=== PATIENT | male | born 1945 | race Caucasian/White ===

== ENCOUNTER 2017-06-01 00:17 | Inpatient (IN) | payer BC, OTHER ==
[~2017-06-01] VITALS: Ht 170.2 cm; Wt 79.0 kg
[2017-06-01] MEDS ORDERED: ONDANSETRON 4 MG INJ IV STA (00:56)
[2017-06-01] MEDS ORDERED: SOD CHLORIDE 0.9% 500 ML IV STA (00:56)
--- NOTE | 2017-06-01 01:07 | ERA ---
ER Documentation Chief Complaint Date/Time DATE: 06/01/17 TIME: 01:03 Chief Complaint HPI Patient is a 72-year-old male with history of left-sided weakness due to stroke 4 months ago who presents to the ER with sudden onset, intermittent, frequent vomiting for the last 1-2 hours. He states that there is no blood in the emesis. He denies abdominal pain. He denies fever. He denies diarrhea or constipation. He reports having a mild cough and slight shortness of breath. He reports having a mild headache and tremor to his left hand that is new. He is not on anticoagulation. ROS All systems reviewed and are negative except as per history of present illness. Medications Home Meds Reported Medications Clopidogrel Bisulfate* (Clopidogrel Bisulfate*) 75 Mg Tablet, 75 MG PO DAILY, # 30 TAB 06/01/17 Amlodipine Besylate* (Amlodipine Besylate*) 10 Mg Tablet, 10 MG PO DAILY, #30 TAB 06/01/17 Metformin Hcl* (Metformin Hcl*) 500 Mg Tablet, 500 MG PO WITH BREAKFAST DINNE, # 60 TAB 06/01/17 Atorvastatin* (Atorvastatin*) 40 Mg Tablet, 40 MG PO QHS, #30 TAB 06/01/17 Carvedilol* (Carvedilol*) 12.5 Mg Tablet, 12.5 MG PO BID, #60 TAB 06/01/17 Discontinued Reported Medications Carvedilol* (Carvedilol*) 12.5 Mg Tablet, 12.5 MG PO BID, #60 TAB 06/01/17 Allergies Allergies: Coded Allergies: No Known Allergy (Unverified , 06/01/17) PMhx/Soc Past medical history: CVA with left-sided deficit, diabetes mellitus, hypertension, hypercholesterolemia Past surgical history: Patient denies Social history: Patient denies tobacco or alcohol FmHx Noncontributory Physical Exam Vitals Vital Signs Date Time Temp Pulse Resp B/P Pulse Ox O2 Delivery O2 Flow Rate FiO2 06/01/17 06:03 98.5 96 20 149/119 95 Room Air 06/01/17 04:00 98.7 96 18 147/91 97 Room Air 06/01/17 02:59 99.3 100 19 136/69 100 Room Air 06/01/17 02:00 98.8 86 19 119/81 94 Room Air 06/01/17 01:08 98.4 92 22 171/125 97 06/01/17 00:55 98.2 92 20 151/89 97 Room Air Physical Exam Const: Alert, slightly lethargic, no acute distress, no active on Head: Atraumatic Eyes: Normal Conjunctiva, Pupils equal round reactive, no Conjunctival pallor or icterus ENT: Normal External Ears, Nose and Mouth. Mucous membranes moist Neck: Full range of motion..~ No meningismus. Resp: Clear to auscultation bilaterally, Trace right basilar rales Cardio: Regular rate and rhythm, no murmurs Abd: Soft, non tender, non distended. Skin: No petechiae or rashes Back: No midline or flank tenderness Ext: No cyanosis, or edema Neur: Awake and alert, Dense left hemiparesis, slight facial droop, no tremor noted Psych: Normal Mood and Affect Result Diagram: 06/01/1710906/01/17109 Results 24 hrs Laboratory Tests Test 06/01/17 01:10 06/01/17 01:36 06/01/17 02:47 06/01/17 05:15 White Blood Count 13.310^3/ul Red Blood Count 5.1510^6/ul Hemoglobin 14.4g/dl Hematocrit 42.7% Mean Corpuscular Volume 82.9fl Mean Corpuscular Hemoglobin 28.0pg Mean Corpuscular Hemoglobin Concent 33.7g/dl Red Cell Distribution Width 13.4% Platelet Count 91126^3/UL Mean Platelet Volume 10.3fl Neutrophils % 78.5% Lymphocytes % 15.8% Monocytes % 3.2% Eosinophils % 1.4% Basophils % 0.5% Nucleated Red Blood Cells % 0.0/100WBC Neutrophils # 10.510^3/ul Lymphocytes # 2.110^3/ul Monocytes # 0.410^3/ul Eosinophils # 0.210^3/ul Basophils # 0.110^3/ul Nucleated Red Blood Cells # 0.010^3/ul Prothrombin Time 13.2Sec Prothrombin Time Ratio 1.0 INR International Normalized Ratio 1.00 Activated Partial Thromboplast Time 29.4Sec Sodium Level 139mmol/L Potassium Level 3.5mmol/L Chloride Level 101mmol/L Carbon Dioxide Level 29mmol/L Anion Gap 13 Blood Urea Nitrogen 11mg/dl Creatinine 0.84mg/dl Glucose Level 174mg/dl Calcium Level 10.1mg/dl Total Bilirubin 0.2mg/dl Direct Bilirubin 0.00mg/dl Indirect Bilirubin 0.2mg/dl Aspartate Amino Transf (AST/SGOT) 37IU/L Alanine Aminotransferase (ALT/SGPT) 46IU/L Alkaline Phosphatase 127IU/L Troponin I 0.021ng/ml Total Protein 8.6g/dl Albumin 3.8g/dl Globulin 4.80g/dl Albumin/Globulin Ratio 0.79 Bedside Glucose 166mg/dL Urine Color YELLOW Urine Clarity CLOUDY Urine pH 6.0 Urine Specific [place] 1.012 Urine Ketones NEGATIVEmg/dL Urine Nitrite NEGATIVEmg/dL Urine Bilirubin NEGATIVEmg/dL Urine Urobilinogen NEGATIVEmg/dL Urine Leukocyte Esterase 3+Yue/ul Urine Microscopic RBC 46/HPF Urine Microscopic WBC > 182/HPF Urine Bacteria FEW/HPF Urine Mucus FEW/HPF Urine Hemoglobin 2+mg/dL Urine Glucose NEGATIVEmg/dL Urine Total Protein 1+mg/dl Lactic Acid Level 1.7mmol/L Current Medications Medications (Trade) Dose Ordered Sig/Roberto Route PRN Reason Start Time Stop Time Status Last Admin Dose Admin Sodium Chloride (NS) 500 ml @ 500 mls/hr Q1H STAT IV 06/01/17 00:56 06/01/17 01:55 DC 06/01/17 01:52 Ondansetron HCl 4 mg 4 mg ONCE STAT IV 06/01/17 00:56 06/01/17 00:59 DC 06/01/17 01:51 Ceftriaxone Sodium 50 ml @ 100 mls/hr ONCE STAT IVPB 06/01/17 03:50 06/01/17 04:19 DC 06/01/17 05:31 Sodium Chloride (NS) 500 ml @ 500 mls/hr Q1H ONCE IV 06/01/17 04:00 06/01/17 04:59 DC 06/01/17 04:00 Lorazepam (Ativan) 0.5 mg ONCE ONCE IV 06/01/17 05:00 06/01/17 05:01 DC 06/01/17 05:30 Ondansetron HCl (Zofran Inj) 4 mg ER BRIDGE PRN IV NAUSEA AND/OR VOMITING 06/01/17 06:00 06/02/17 05:59 Acetaminophen (Tylenol Tab) 650 mg ER BRIDGE PRN PO MILD PAIN/FEVER 06/01/17 06:00 06/02/17 05:59 Procedures/MDM EKG read by me: Time 0 47, rate 91 Rhythm: Normal sinus [place]: Normal Intervals: Normal ST-T waves: Nonspecific STT wave changes in lateral leads Ectopy: No Q-waves: Inferior Q waves, anterior Q waves are not clearly pathologic Impression: Left ventricular hypertrophy with nonspecific STT wave changes MDM: Patient is a 72-year-old male with history of left-sided hemiparesis who presents to the ER with vomiting and left arm shaking. He does not have any new neurologic symptoms but appears slightly confused. Head CT shows no hemorrhage. There is no discernible acute neurologic symptoms. Workup is otherwise unremarkable except for evidence of urinary tract infection. The patient has leukocytosis. I have concerned the patient may have early pyelonephritis given change in behavior and vomiting. He is afebrile. Lactic acid is pending. Patient is on carvedilol, so I have some suspicion he may have CHF. A BNP is pending. The patient was given Rocephin and a small bolus of fluid. I will defer giving further fluids until established whether he has sepsis and whether he has CHF. The patient did have nonspecific STT wave changes on EKG, but did not have elevated troponin or complaint of chest pain. He had no significant electrolyte abnormality. He did have slight rales on exam , but was able to tolerate oral intake without choking. I cannot exclude the possibility of aspiration. The patient had no hypoxemia or significant tachypnea. Blood and urine cultures were sent. Patient will be admitted for further treatment and infectious workup. Case was discussed with Dr. Bernal. Departure Diagnosis: Primary Impression: Nausea and vomiting Qualified Code: R11.2 - Non-intractable vomiting with nausea, unspecified vomiting type Additional Impressions: UTI (urinary tract infection) Qualified Code: N39.0 - Urinary tract infection with hematuria, site unspecified Altered mental status Condition: DEWARD Patel MD Jun 01, 2017 01:07
--- NOTE | 2017-06-01 01:45 | RADRPT ---
PROCEDURE: Portable chest x-ray. CLINICAL INDICATION: Altered level of consciousness. TECHNIQUE: Portable AP view of the chest. COMPARISON: None. FINDINGS: There are mildly prominent interstitial lung markings. The cardiac silhouette is enlarged. No pleu ral effusion is seen. There is no pneumothorax. IMPRESSION: 1. Mildly prominent interstitial lung markings, possibly representing interstitial edema, a viral c hest infection, and/or chronic lung changes. 2. Enlarged cardiac silhouette. RPTAT: HTAR .Mike Vo MD, MD Date Time Electronically viewed and signed by .Mike Vo MD, MD on 06/01/2017 01:44 .R/
--- NOTE | 2017-06-01 01:51 | RADRPT ---
PROCEDURE: Noncontrast CT Head. CLINICAL INDICATION: Pain. TECHNIQUE: Noncontrast CT of the head was obtained. The administered radiation dose was CTDI vol = 45 mGy, DLP = 810 mGy-cm. One or more of the following dose reduction techniques were used: automate d exposure control, adjustment of the mA and/or kV according to patient size and/or use of iterative reconstruction technique. COMPARISON: No pertinent prior examinations were submitted for comparison. FINDINGS: The ventricles and cortical sulci are mild to moderately enlarged. There is mild to moderate decrea sed attenuation within the periventricular and subcortical white matter compatible with chronic micr ovascular changes. There is a large right middle cerebral artery territory infarct with encephalomalacia. There is no acute intracranial hemorrhage or extra-axial fluid collection. There is no mass effect. No midline s hift is identified. There is no loss of melendez-white differentiation to suggest acute infarction. The orbits are within normal limits. The paranasal sinuses are well aerated. No destructive osseous lesion is identified. IMPRESSION: No acute findings. Mild to moderate diffuse parenchymal volume loss and chronic microvascular nieves es. Chronic, large right middle cerebral artery territory infarct. RPTAT: HIKT .Angel Ortega MD, MD Date Time Electronically viewed and signed by .Angel Ortega MD, MD on 06/01/2017 01:50 .T/
[2017-06-01 01:58] LABS: BASOPHIL # 0.1 10^3/ul (0.0-0.1); BASOPHILS % 0.5 % (0.0-2.0); EOSINOPHILS # 0.2 10^3/ul (0.0-0.5); EOSINOPHILS % 1.4 % (0.0-7.0); HEMATOCRIT 42.7 % (42.0-52.0); HEMOGLOBIN 14.4 g/dl (14.0-18.0); LYMPHOCYTES # 2.1 10^3/ul (0.8-2.9); LYMPHOCYTES % 15.8 % (15.0-51.0); MEAN CORPUSCULAR HGB CONC 33.7 g/dl (32.0-37.0); MEAN CORPUSCULAR VOLUME 82.9 fl (82.0-101.0); MEAN PLATELET VOLUME 10.3 fl (7.4-10.4); MONOCYTE # 0.4 10^3/ul (0.3-0.9); MONOCYTES % 3.2 % (0.0-11.0); NEUTROPHIL # 10.5 10^3/ul (1.6-7.5); NEUTROPHILS % 78.5 % (39.0-77.0); PLATELET COUNT 346 10^3/UL (140-415); RED BLOOD COUNT 5.15 10^6/ul (4.70-6.10); RED CELL DISTRIBUTION WIDTH 13.4 % (11.5-14.5); WHITE BLOOD COUNT 13.3 10^3/ul (4.8-10.8)
[2017-06-01 02:16] LABS: PROTIME 13.2 Sec (12.2-14.2)
[2017-06-01 02:17] LABS: ALBUMIN 3.8 g/dl (3.3-4.9); ALBUMIN/GLOBULIN RATIO 0.79; BILIRUBIN,INDIRECT 0.2 mg/dl (0-1.1); BILIRUBIN,TOTAL 0.2 mg/dl (0.2-1.3); CALCIUM 10.1 mg/dl (8.4-10.2); CREATININE 0.84 mg/dl (0.61-1.24); PARTIAL THROMBOPLASTIN TIME 29.4 Sec (25.0-35.0); POTASSIUM 3.5 mmol/L (3.5-5.1); TOTAL PROTEIN 8.6 g/dl (6.1-8.1)
[2017-06-01 02:49] LABS: TROPONIN-I 0.021 ng/ml (0.00-0.12)
[2017-06-01 03:41] LABS: ADD UMIC YES; UR ASCORBIC ACID NEGATIVE (NEGATIVE); UR BACTERIA FEW /HPF (NONE SEEN); UR BILIRUBIN (Dip) NEGATIVE (NEGATIVE); UR BLOOD (Dip) 2+ mg/dL (NEGATIVE); UR CLARITY CLOUDY (CLEAR); UR COLOR YELLOW (YELLOW); UR GLUCOSE (Dip) NEGATIVE (NEGATIVE); UR KETONES (Dip) NEGATIVE (NEGATIVE); UR LEUKOCYTE ESTERASE (Dip) 3+ Leu/ul (NEGATIVE); UR MUCUS FEW /HPF (NONE SEEN); UR NITRITE (Dip) NEGATIVE (NEGATIVE); UR RBC 46 /HPF (0-5); UR SPECIFIC GRAVITY (Dip) 1.012 (1.003-1.030); UR TOTAL PROTEIN (Dip) 1+ mg/dl (NEGATIVE); UR UROBILINOGEN (Dip) NEGATIVE (NEGATIVE)
[2017-06-01] MEDS ORDERED: CEFTRIAXONE 1 GM/50 ML (PMX) 50 ML IVPB STA (03:50)
[2017-06-01] MEDS ORDERED: SOD CHLORIDE 0.9% 500 ML IV ONE (04:00)
[2017-06-01] MEDS ORDERED: CARV12.579 PO (04:02)
[2017-06-01] MEDS ORDERED: ATOR40TA68 PO (04:02)
[2017-06-01] MEDS ORDERED: METF500T4 PO (04:02)
[2017-06-01] MEDS ORDERED: CLOP75TA4 PO (04:07)
[2017-06-01] MEDS ORDERED: AMLO-147 PO (04:07)
[2017-06-01] MEDS ORDERED: LORAZEPAM 2 MG INJ IV ONE (05:00)
[2017-06-01] MEDS ORDERED: ONDANSETRON 4 MG INJ IV PRN ×2 (06:00→10:30)
[2017-06-01] MEDS ORDERED: ACETAMINOPHEN 325 MG TAB PO PRN ×2 (06:00→10:30)
[2017-06-01] MEDS: CEFTRIAXONE 1 GM/50 ML (PMX) 50 ML IVPB SCH (09:58)
[2017-06-01] MEDS ORDERED: HYDROCODONE/APAP (5/325) TAB PO PRN (10:30)
[2017-06-01] MEDS ORDERED: NACL 0.9% 3 ML SYG IV SCH (10:30)
[2017-06-01] MEDS ORDERED: SOD CHLORIDE 0.9% 1,000 ML IV SCH (12:00)
[2017-06-01 13:50] LABS: CK-MB 0.66 ng/ml (0.0-2.4); TROPONIN-I 0.02 ng/ml (0.00-0.12)
--- NOTE | 2017-06-01 15:36 | HP ---
Date/Time of Note Date/Time of Note DATE: 06/01/17 TIME: 15:35 Assessment/Plan VTE Prophylaxis VTE Prophylaxis Intervention: LMWH Lines/Catheters Urinary Cath still in place: Yes Reason Cath still needed: other (indicate) (To be discontinued within 24 hours) Assessment/Plan Assessment/Plan 72-year-old male with: 1. Episode of nausea/vomiting, chills on exam and findings of urinary tract infection. Likely his symptoms are all tying to the urinary tract infection, urine culture pending, for now patient has been started on Rocephin. Continue IV fluids. Follow-up on urine cultures for adjustment of antibiotics. Patient with no signs of acute kidney injury, and according to family able to urinate. Therefore Mcdowell catheter needs to be discontinued by tomorrow morning. 2. Tremors, most likely chills actually, doubt that patient having partial seizures as he is conscious throughout, no previous history of seizures, will treat underlying infection and see if the observed tremors are related to chills 3. Old right MCA territory CVA, residual left hemiparesis, continue Plavix along with statin therapy and blood pressure control. 4. Hypertension: Continue all home medication except for Norvasc. Norvasc can be resumed if needed for blood pressure control 5. Hyperlipidemia: Lipitor, per family request will check fasting lipid panel in a.m. 6. Questionable diabetes mellitus, check hemoglobin A1c, discontinue metformin for now, sliding scale insulin and monitor blood sugars while inpatient. Diabetic diet Prophylaxis: Lovenox for DVT prophylaxis, Pepcid for GI prophylaxis Disposition: Being admitted to telemetry for now, may downgrade later if needed , hopefully if on the UTI as diagnosis, patient will be discharged in the next 48 hours on appropriate antibiotics if he improves. HPI/ROS Admit Date/Time Admit Date/Time Hx of Present Illness Chief complaint: Episode of nausea/vomiting, tremors History of presenting illness: This is a 72-year-old male with a reported history of hypertension, hyperlipidemia, diabetes mellitus and recent CVA actually approximately 3 months ago in February 2017 that resulted in left hemiparesis who was brought in by his with reported acute onset of tremors of his left upper extremity, episode of nausea and vomiting and altered level of consciousness. Patient was noted to have urinary frequency lately according to the family, no hematuria, no dysuria, the patient is bilingual Faroese and Japanese, he is able to communicate even to me today. Yesterday evening he became altered, he was noted to have episodes of tremors especially of his left paretic upper extremity. The family denies any fevers, chest pains, shortness of breath, abdominal pain. He usually eats regular food according to the family and has no dysphagia. During my exam, the patient is alert and oriented 3 at least, he is however having chills, blood pressure stable, urine analysis is positive for consistent with a urinary tract infection. A Mcdowell catheter was placed in the emergency department but there is no reported history of urinary retention, if anything the patient has urinary frequency at home. The patient denies chest pain, he denies shortness of breath. Chest x-ray overnight does not show any acute pathology, CAT scan of the brain does show a old right MCA territory infarct, no acute findings. Patient has been started on treatment for urinary tract infection, he has been started on Rocephin, IV fluids on board, all his medications post CVA are continued. According to the , they are doubtful that the patient does have diabetes as at home, sometimes, they would hold off his metformin and his blood sugars have been stable in the 120's. Therefore on this admission will check hemoglobin A1c and hold his listed metformin. ROS Constitutional: chills, disoriented Respiratory: no complaints Cardiovascular: no complaints Gastrointestinal: nausea, vomiting Genitourinary: other (Urinary frequency) Musculoskeletal: no complaints Skin: no complaints Neurologic: focal-weakness (Left hemiparesis chronic) Endocrine: no complaints Psychological: confusion (Occasional) PMH/Family/Social Past Medical History Old CVA with left hemiparesis February 2017 Hypertension Hyperlipidemia Unclear diabetes mellitus Past Surgical History Past Surgical Hx: no surgical history Family History Significant Family History: no pertinent family hx Social History Alcohol Use: none Smoking Status: Former smoker (1/2 per day x 50 yrs and quit 3 months ago) Drug Use: none Exam/Review of Systems Vital Signs Vitals Vital Signs Date Time Temp Pulse Resp B/P Pulse Ox O2 Delivery O2 Flow Rate FiO2 06/01/17 13:28 98.1 79 17 192/100 98 Room Air Exam Constitutional: alert, oriented (x3), other (Left hemiparesis) Psych: confusion (Occasional) Respiratory: clear to auscultation, normal air movement Cardiovascular: nl pulses, regular rate and rhythm Gastrointestinal: non-tender, soft Genitourinary - Male: other (Mcdowell catheter in place new) Musculoskeletal: muscle weakness (Left hemiparesis post CVA), other (No edema, clubbing or cyanosis) Extremities: normal pulses 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, focal weakness (Left hemiparesis), nl speech Labs Result Diagram: 06/01/1710906/01/17 011 Medications Medications Home medications: See medication reconciliation on admission Current Medications Ceftriaxone Sodium (Rocephin) 50 ml @ 100 mls/hr Q24H IVPB Last administered on 06/01/17 09:58; Admin Dose 100 MLS/HR; Start 06/01/17 at 09:30 Ondansetron HCl (Zofran Inj) 4 mg Q6H PRN IV NAUSEA AND/OR VOMITING; Start 06/01/17 at 10:30 Acetaminophen (Tylenol Tab) 650 mg Q6H PRN PO PAIN LEVEL 1-3 OR FEVER; Start 06/01/17 at 10:30 Acetaminophen/ Hydrocodone Bitart ([place] (5/325)) 1 tab Q6H PRN PO PAIN LEVEL 4 -6; Start 06/01/17 at 10:30 Enoxaparin Sodium (Lovenox) 40 mg DAILY SC ; Start 06/02/17 at 09:00 Atorvastatin Calcium (Lipitor) 40 mg QHS PO ; Start 06/01/17 at 21:00 Carvedilol (Coreg) 12.5 mg BID PO ; Start 06/01/17 at 21:00 Clopidogrel Bisulfate 75 mg 75 mg DAILY PO ; Start 06/02/17 at 09:00 Sodium Chloride (NS) 1,000 ml @ 75 mls/hr [id number] IV Last administered on 06/01 12:00; Admin Dose 75 MLS/HR; Start 06/01/17 at 12:00; Stop 06/02/17 at 01: 19 Procedures Procedures PROCEDURE: Portable chest x-ray. CLINICAL INDICATION: Altered level of consciousness. TECHNIQUE: Portable AP view of the chest. COMPARISON: None. FINDINGS: There are mildly prominent interstitial lung markings. The cardiac silhouette is enlarged. No pleural effusion is seen. There is no pneumothorax. IMPRESSION: 1. Mildly prominent interstitial lung markings, possibly representing interstitial edema, a viral chest infection, and/or chronic lung changes. 2. Enlarged cardiac silhouette. PROCEDURE: Noncontrast CT Head. CLINICAL INDICATION: Pain. TECHNIQUE: Noncontrast CT of the head was obtained. The administered radiation dose was CTDI vol = 45 mGy, DLP = 810 mGy-cm. One or more of the following dose reduction techniques were used: automated exposure control, adjustment of the mA and/or kV according to patient size and/or use of iterative reconstruction technique. COMPARISON: No pertinent prior examinations were submitted for comparison. FINDINGS: The ventricles and cortical sulci are mild to moderately enlarged. There is mild to moderate decreased attenuation within the periventricular and subcortical white matter compatible with chronic microvascular changes. There is a large right middle cerebral artery territory infarct with encephalomalacia. There is no acute intracranial hemorrhage or extra-axial fluid collection. There is no mass effect. No midline shift is identified. There is no loss of melendez-white differentiation to suggest acute infarction. The orbits are within normal limits. The paranasal sinuses are well aerated. No destructive osseous lesion is identified. IMPRESSION: No acute findings. Mild to moderate diffuse parenchymal volume loss and chronic microvascular changes. Chronic, large right middle cerebral artery territory infarct. RPTAT: HIKT .Angel Ortega MD, MD Date Time Electronically viewed and signed by .Angel Ortega MD, MD on 06/01/2017 01:50 YAO UMANA Jun 01, 2017 15:36
[2017-06-01] MEDS ORDERED: GLUCAGON 1 MG INJ IM PRN (16:30)
[2017-06-01] MEDS ORDERED: GLUCOSE GEL 15 GRAM TUBE PO PRN ×2 (16:30)
[2017-06-01] MEDS ORDERED: DEXTROSE 50% 50 ML SYRINGE IV PRN ×2 (16:30)
[2017-06-01] MEDS ORDERED: GLUCOSE GEL 15 GRAM TUBE BUCCAL PRN (16:30)
[2017-06-01] MEDS: INSULIN ASPART [NOVOLOG] 3 ML PEN SC SCH ×2 (18:00→21:00)
[2017-06-01 20:26] VITALS: TEMP 98.1
[2017-06-01 20:55] VITALS: Ht 170.2 cm; Wt 79.0 kg
[2017-06-01 21:11] VITALS: PULSE 84
[2017-06-01] MEDS: ATORVASTATIN 40 MG TAB PO SCH (21:24)
[2017-06-02] VITALS (12 sets, daily range): BP systolic 135–160; BP diastolic 68–79; PULSE 72–78; RESP 17–20
[2017-06-02] MEDS: ACCU-CHEK XX SCH (01:02)
[2017-06-02 07:19] LABS: BASOPHIL # 0.1 10^3/ul (0.0-0.1); BASOPHILS % 0.5 % (0.0-2.0); EOSINOPHILS # 0.2 10^3/ul (0.0-0.5); EOSINOPHILS % 2.2 % (0.0-7.0); HEMATOCRIT 35.8 % (42.0-52.0); HEMOGLOBIN 11.8 g/dl (14.0-18.0); LYMPHOCYTES # 3.9 10^3/ul (0.8-2.9); LYMPHOCYTES % 35.2 % (15.0-51.0); MEAN CORPUSCULAR HEMOGLOBIN 27.5 pg (29.0-33.0); MEAN CORPUSCULAR VOLUME 83.4 fl (82.0-101.0); MONOCYTE # 1.1 10^3/ul (0.3-0.9); MONOCYTES % 9.6 % (0.0-11.0); NEUTROPHIL # 5.7 10^3/ul (1.6-7.5); PLATELET COUNT 280 10^3/UL (140-415); RED BLOOD COUNT 4.29 10^6/ul (4.70-6.10); RED CELL DISTRIBUTION WIDTH 13.5 % (11.5-14.5)
[2017-06-02 07:35] LABS: CALCIUM 9.3 mg/dl (8.4-10.2); CREATININE 0.87 mg/dl (0.61-1.24); POTASSIUM 3.5 mmol/L (3.5-5.1)
[2017-06-02 07:40] LABS: MAGNESIUM 1.5 mg/dl (1.7-2.5); PHOSPHORUS 3.5 mg/dl (2.5-4.9)
--- NOTE | 2017-06-02 07:40 | PN ---
Date/Time of Note Date/Time of Note DATE: 06/02/17 TIME: 07:36 Assessment/Plan VTE Prophylaxis VTE Prophylaxis Intervention: SCD's Lines/Catheters IV Catheter Type (from Nrsg): Saline Lock Urinary Cath still in place: Yes Reason Cath still needed: other (indicate) (Paralyzed on the left, and unable to get to commode. ) Assessment/Plan Assessment/Plan [facility] 1. Mr. Solano is a 72-year-old man who presented yesterday morning with an episode of nausea/emesis and chills, now culturing Gram-negative rods from three blood culture bottles. Probable urinary tract source. * Urine culture pending * Continue Rocephin, with sensitivities pending. * Continue IV fluids. * Mcdowell catheter to be discontinued this morning. 2. Old right MCA territory CVA, with residual left hemiparesis * Continue Plavix * Blood pressure control with carvedilol 12.5mg PO BID * Restart Norvasc this morning for improved blood pressure control 3. Hyperlipidemia * Fasting lipids pending * Continue statin therapy with Lipitor 4. Hyperglycemia on admission. Treated outpatient with metformin * Hold metformin for now * Accuchecks today * A1c pending * Sliding scale ordered on admission, but not needed so far. 5. Prophylaxis: Lovenox for DVT prophylaxis, Pepcid for GI prophylaxis 6. Disposition: Admitted to telemetry * Full-code * Anticipate discharge home soon on oral antibiotics once culture results return. Og Loera MD PhD [phone] Subjective 24 Hr Interval Summary Free Text/Dictation Quiet, with little eye contact but able to answer questions. No pain or nausea acknowledged. He said he had no visitors today. Exam/Review of Systems Vital Signs Vitals Vital Signs Date Time Temp Pulse Resp B/P Pulse Ox O2 Delivery O2 Flow Rate FiO2 06/02/17 04:18 72 06/02/17 04:13 98.9 20 148/77 97 06/01/17 20:26 Room Air Intake and Output 06/01/17 06/01/17 06/02/17 15:00 23:00 07:00 Intake Total 120 ml Output Total 600 ml Balance -480 ml Exam Constitutional: No movement of the left arm, and 4/5 strength in the left leg. Psych: Very neutral affect, minimal engagement. Respiratory: clear to auscultation, normal air movement Cardiovascular: nl pulses, regular rate and rhythm Gastrointestinal: non-tender, soft Genitourinary - Male: Mcdowell catheter in place. No CVA tenderness. Musculoskeletal: muscle weakness (Left hemiparesis post CVA), with no edema, clubbing or cyanosis) Extremities: normal pulses, no edema, no arthritis. 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, focal weakness (Left UE hemiparesis), nl speech Results Result Diagram: 06/02/17 0649 06/01/17 0110 Results 24 hrs Laboratory Tests Test 06/01/17 12:40 06/01/17 14:50 06/01/17 21:33 06/02/17 06:49 Creatine Kinase 48 Creatine Kinase Index 1.4 Creatinine Kinase MB (Mass) 0.66 Troponin I 0.020 Thyroid Stimulating Hormone (TSH) 0.217 L Free Thyroxine 1.48 Bedside Glucose 110 White Blood Count 11.0 H Red Blood Count 4.29 L Hemoglobin 11.8 L Hematocrit 35.8 L Mean Corpuscular Volume 83.4 Mean Corpuscular Hemoglobin 27.5 L Mean Corpuscular Hemoglobin Concent 33.0 Red Cell Distribution Width 13.5 Platelet Count 280 Mean Platelet Volume 10.0 Neutrophils % 52.0 Lymphocytes % 35.2 Monocytes % 9.6 Eosinophils % 2.2 Basophils % 0.5 Nucleated Red Blood Cells % 0.0 Neutrophils # 5.7 Lymphocytes # 3.9 H Monocytes # 1.1 H Eosinophils # 0.2 Basophils # 0.1 Nucleated Red Blood Cells # 0.0 Medications Medications Current Medications Ceftriaxone Sodium (Rocephin) 50 ml @ 100 mls/hr Q24H IVPB Last administered on 06/01/17t 09:58; Admin Dose 100 MLS/HR; Start 06/01/17 at 09:30 Ondansetron HCl (Zofran Inj) 4 mg Q6H PRN IV NAUSEA AND/OR VOMITING; Start 06/01/17 at 10:30 Acetaminophen (Tylenol Tab) 650 mg Q6H PRN PO PAIN LEVEL 1-3 OR FEVER; Start 06/01/17 at 10:30 Acetaminophen/ Hydrocodone Bitart ([place] (5/325)) 1 tab Q6H PRN PO PAIN LEVEL 4 -6; Start 06/01/17 at 10:30 Enoxaparin Sodium (Lovenox) 40 mg DAILY SC ; Start 06/02/17 at 09:00 Atorvastatin Calcium (Lipitor) 40 mg QHS PO Last administered on 06/01/17 21: 24; Admin Dose 40 MG; Start 06/01/17 at 21:00 Carvedilol (Coreg) 12.5 mg BID PO Last administered on 06/01/17 21:24; Admin Dose 12.5 MG; Start 06/01/17 at 21:00 Clopidogrel Bisulfate (plaVIX) 75 mg DAILY PO ; Start 06/02/17 at 09:00 Diagnostic Test (Pha) (Accu-Chek) 1 ea 02 XX ; Start 06/02/17 at 02:00 Miscellaneous Information 1 ea NOTE XX ; Start 06/01/17 at 16:30 Glucose (Glutose) 15 gm Q15M PRN PO DECREASED GLUCOSE; Start 06/01/17 at 16:30 Glucose (Glutose) 22.5 gm Q15M PRN PO DECREASED GLUCOSE; Start 06/01/17 at 16: 30 Dextrose (D50w Syringe) 25 ml Q15M PRN IV DECREASED GLUCOSE; Start 06/01/17 at 16:30 Dextrose (D50w Syringe) 50 ml Q15M PRN IV DECREASED GLUCOSE; Start 06/01/17 at 16:30 Glucagon (Glucagen) 1 mg Q15M PRN IM DECREASED GLUCOSE; Start 06/01/17 at 16:30 Glucose (Glutose) 15 gm Q15M PRN BUCCAL DECREASED GLUCOSE; Start 06/01/17 at 16 :30 Influenza Virus Vaccine (Fluzone) 0.5 ml ONCE ONCE IM* ; Start 06/02/17 at 09:00 ; Stop 06/02/17 at 09:01 SEGUN LOERA M.D. Jun 02, 2017 07:40 24; Admin Dose 40 MG; Start 06/01/17 at 21:00 Carvedilol (Coreg) 12.5 mg BID PO Last administered on 06/01/17 21:24; Admin Dose 12.5 MG; Start 06/01/17 at 21:00 Clopidogrel Bisulfate (plaVIX) 75 mg DAILY PO ; Start 06/02/17 at 09:00 Diagnostic Test (Pha) (Accu-Chek) 1 ea 02 XX ; Start 06/02/17 at 02:00 Miscellaneous Information 1 ea NOTE XX ; Start 06/01/17 at 16:30 Glucose (Glutose) 15 gm Q15M PRN PO DECREASED GLUCOSE; Start 06/01/17 at 16:30 Glucose (Glutose) 22.5 gm Q15M PRN PO DECREASED GLUCOSE; Start 06/01/17 at 16: 30 Dextrose (D50w Syringe) 25 ml Q15M PRN IV DECREASED GLUCOSE; Start 06/01/17 at 16:30 Dextrose (D50w Syringe) 50 ml Q15M PRN IV DECREASED GLUCOSE; Start 06/01/17 at 16:30 Glucagon (Glucagen) 1 mg Q15M PRN IM DECREASED GLUCOSE; Start 06/01/17 at 16:30 Glucose (Glutose) 15 gm Q15M PRN BUCCAL DECREASED GLUCOSE; Start 06/01/17 at 16 :30 Influenza Virus Vaccine (Fluzone) 0.5 ml ONCE ONCE IM* ; Start 06/02/17 at 09:00 ; Stop 06/02/17 at 09:01 SEGUN LOERA M.D. Jun 02, 2017 07:40
[2017-06-02] MEDS: INSULIN ASPART [NOVOLOG] 3 ML PEN SC SCH ×4 (08:00→20:47)
[2017-06-02 08:14] LABS: CHOL/HDL RATIO 3.6 RATIO
[2017-06-02] MEDS ORDERED: ASPIRIN 81 MG TAB PO SCH (09:00)
[2017-06-02] MEDS ORDERED: INFLUENZA VIRUS VACCINE 0.5 ML (DISPENSING) IM* ONE (09:00)
[2017-06-02] MEDS: CLOPIDOGREL 75 MG TAB PO SCH (09:04)
[2017-06-02] MEDS: ENOXAPARIN 40 MG/0.4 ML SYG SC SCH (09:08)
[2017-06-02] MEDS: CEFTRIAXONE 1 GM/50 ML (PMX) 50 ML IVPB SCH (10:14)
[2017-06-02] MEDS: ATORVASTATIN 40 MG TAB PO SCH (20:46)
[2017-06-03] VITALS (11 sets, daily range): BP systolic 128–169; BP diastolic 70–78; PULSE 63–73; RESP 17–20
[2017-06-03] MEDS: ACCU-CHEK XX SCH (02:00)
[2017-06-03] MEDS: INSULIN ASPART [NOVOLOG] 3 ML PEN SC SCH ×2 (07:38→12:00)
[2017-06-03] MEDS: CLOPIDOGREL 75 MG TAB PO SCH (08:59)
[2017-06-03] MEDS: CEFTRIAXONE 1 GM/50 ML (PMX) 50 ML IVPB SCH (08:59)
[2017-06-03] MEDS: ENOXAPARIN 40 MG/0.4 ML SYG SC SCH (09:01)
[2017-06-03] MEDS ORDERED: LEVOFLOXACIN 500MG/D5W (PMX) 100 ML IVPB SCH (12:30)
[2017-06-03] MEDS ORDERED: BISACODYL 10 MG SUPP PR PRN (13:00)
[2017-06-03] MEDS ORDERED: LORAZEPAM 2 MG INJ IV PRN (13:00)
--- NOTE | 2017-06-03 18:15 | DS ---
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 He was brought by his with acute onset of tremors of his left upper extremity, episode of nausea and vomiting and altered level of consciousness. Patient was noted to have urinary frequency lately according to the family, with no hematuria or dysuria. The patient is bilingual in Polish and Romansh. The day prior to admission he was noted to have episodes of tremors especially of his left paretic upper extremity. Hospital Course Portable chest x-ray did not show any acute changes. CT scan of the brain showed an old right MCA territory infarct, with no acute findings. Patient was treated for urinary tract infection with IV Rocephin, IV fluids, and with all his medications post CVA continued. According to his , they are doubtful that the patient has diabetes, and his blood sugars were stably low on Accuchecks off metformin. HgbA1c was 6.0%. Blood cultures grew Gram-negative rods from three bottles, daugherty-sensitive. This morning he was switched from Rocephin to IV levofloxacin, with the intent to complete seven days total (with six more days of PO levofloxocin 500mg). Patient can have his Mcdowell catheter discontinued tomorrow morning at [facility]. He had persistent paralysis of the left upper extremity, with left leg weakness secondary to a right MCA territory CVA. He was continued on Plavix, and his hypertension treated with carvedilol 12.5mg PO BID and Norvasc 10mg PO each morning. He is not currently able to bear weight alone, but is hopeful that he could recover his ability to ambulate. Og Loera MD PhD [phone] Home Meds Active Scripts Lorazepam* (Ativan*) 0.5 Mg Tablet, 0.5 MG PO BID Y for ANXIETY for 14 Days, # 30 TAB Prov:SEGUN LOERA M.D. 06/03/17 Hydrocodone Bit-Acetaminophen (Hydrocodone Bit-APAP) 5-325MG Tablet, 1 TAB PO Q6H Y for PAIN LEVEL 4-6 for 14 Days, TAB Prov:SEGUN LOERA M.D. 06/03/17 Acetaminophen (MAPAP) 325 Mg Tablet, 650 MG PO Q6H Y for PAIN LEVEL 1-3 OR FEVER for 30 Days, TAB Prov:SEGUN LOERA M.D. 06/03/17 Levofloxacin* (Levaquin*) 500 Mg Tablet, 500 MG PO DAILY for 6 Days, TAB Prov:SEGUN LOERA M.D. 06/03/17 Reported Medications Clopidogrel Bisulfate* (Clopidogrel Bisulfate*) 75 Mg Tablet, 75 MG PO DAILY, # 30 TAB 06/01/17 Amlodipine Besylate* (Amlodipine Besylate*) 10 Mg Tablet, 10 MG PO DAILY, #30 TAB 06/01/17 Atorvastatin* (Atorvastatin*) 40 Mg Tablet, 40 MG PO QHS, #30 TAB 06/01/17 Carvedilol* (Carvedilol*) 12.5 Mg Tablet, 12.5 MG PO BID, #60 TAB 06/01/17 Discontinued Reported Medications Metformin Hcl* (Metformin Hcl*) 500 Mg Tablet, 500 MG PO WITH BREAKFAST DINNE, # 60 TAB 06/01/17 Carvedilol* (Carvedilol*) 12.5 Mg Tablet, 12.5 MG PO BID, #60 TAB 06/01/17 Follow-up Plan He has not met Dr. Muller yet, and had a first appointment scheduled for tomorrow (06/04/17). Primary Care Provider Esteban Muller MD Time spent on discharge: > 30 minutes Pending Labs Laboratory Tests Test 06/02/17 20:44 06/03/17 07:38 06/03/17 12:02 Bedside Glucose 105mg/dL (70-220) 104mg/dL (70-220) 134mg/dL (70-220) SEGUN LOERA M.D. Jun 03, 2017 18:12
--- NOTE | 2017-06-03 18:16 | PDOCDIS ---
Discharge Instructions DIAGNOSIS Discharge Diagnosis Urinary tract infection with sepsis CONDITION Patient Condition: Good HOME CARE INSTRUCTIONS: Diet Instructions: 2gm Na ACTIVITY: Activity Restrictions: Slowly Increase Activity Activity Restrictions Comment: Patient unable to walk unaided, due to right motor stroke three months ago. FOLLOW UP/APPOINTMENTS Follow-up Plan He has not met Dr. Muller yet, and had a first appointment scheduled for tomorrow (06/04/17). SEGUN SHARMA M.D. Jun 03, 2017 18:16
[2017-06-03] MEDS ORDERED: LORA-441 PO (18:19)
[2017-06-03] MEDS ORDERED: HYDR-3498 PO (18:19)
[2017-06-03] MEDS ORDERED: LEVO500T72 PO (18:19)
[2017-06-03] MEDS ORDERED: ACET325T40 PO (18:19)
[2017-06-04] MEDS ORDERED: LEVOFLOXACIN 500 MG TAB PO SCH (09:00)
== END 2017-06-03 21:00 | DRG 872 ==
LOC: E/R 00:17 → MS4 05:55
PROVIDERS: ADMIT Internal Medicine; ATTEND Internal Medicine
DX: A41.51 Sepsis due to Escherichia coli [E. coli] (principal); I69.354 Hemiplegia and hemiparesis following cerebral infarction affecting left non-dominant side; N39.0 Urinary tract infection, site not specified; E11.9 Type 2 diabetes mellitus without complications; I10 Essential (primary) hypertension; E78.00 Pure hypercholesterolemia, unspecified; R25.1 Tremor, unspecified; Z87.891 Personal history of nicotine dependence
CPT/HCPCS: 36415; 70450; 71010; 80048; 80053; 80061; 81001; 82550; 82553; 82962; 83036; 83605; 83735; 83880; 84100; 84439; 84443; 84484; 85025; 85610; 85730; 87040; 87086; 90686; 92610; 93005; 96365; 96366; 96375; 97161; J0696; J1650; J1815; J1956; J2060; J2405; J7030; J7040

== ENCOUNTER 2017-09-10 12:17 | Emergency (ER) | END 2017-09-10 14:26 | disposition home or self-care (01) ==

== ENCOUNTER 2017-09-12 12:08 | Emergency (ER) | END 2017-09-12 12:30 | disposition home or self-care (01) ==

== ENCOUNTER 2017-10-09 16:19 | Observation (INO) | END 2017-10-10 16:03 | disposition home health service (06) ==